=== PATIENT | male | born 1960 | race Caucasian/White ===

== ENCOUNTER 2018-02-22 09:36 | Observation (INO) | payer OTHER ==
[~2018-02-22] VITALS: Ht 177.8 cm; Wt 93.5 kg
[~2018-02-22 09:36] MED LIST: LIPITOR 80MG80 MG PO; NITROSTAT0.4 M1 SL; PLAVIX 75MG TAB75 MG PO; TOPROL XL 25MG25 MG PO
[2018-02-22] MEDS ORDERED: NATURAL FLAX1000 MG PO (09:56)
[2018-02-22] MEDS ORDERED: ASPIR LOW81 MG PO (09:57)
[2018-02-22] MEDS ORDERED: COZAAR25 M1 PO (09:58)
[2018-02-22] MEDS ORDERED: ZYRTEC ALLERGY10 MG PO (09:59)
[2018-02-22 10:09] LABS: EOS # 0.1 (0.04-0.40); EOS % 1.3 % (0.0-4.0); HEMATOCRIT 42.8 % (42.0-52.0); LYMPH# 2.6 (1.50-4.00); MEAN CELL VOLUME 88 fl (78-100); MEAN CORPUSCULAR HEMOGLOBIN 31 pg (27-31); MEAN CORPUSCULAR HGB CONC 35 g/dL (33-37); MEAN PLATELET VOLUME 10.2 fl (7.4-10.4); MONO # 0.7 (0.20-0.80); NEU # 4.4 (1.40-6.50); PLATELET COUNT 182 K/mm3 (130-400); RED BLOOD COUNT 4.89 M/mm3 (4.20-5.60); RED CELL DISTRIBUTION WIDTH 13.3 % (11.5-14.5); WHITE BLOOD COUNT 7.9 K/mm3 (4.8-10.8)
[2018-02-22 10:20] LABS: ALBUMIN 4.1 g/dL (3.5-5.0); CALCIUM 8.5 mg/dL (8.4-10.2); POTASSIUM 3.8 mmol/L (3.6-5.0); TOTAL BILIRUBIN 0.7 mg/dL (0.2-1.3); TOTAL PROTEIN 7.2 g/dL (6.3-8.2)
[2018-02-22 14:43] VITALS: BP 131/76
[2018-02-22 15:25] VITALS: BP 116/69
[2018-02-22 18:38] VITALS: BP 108/68
[2018-02-22 22:46] VITALS: BP 129/75
[2018-02-23 02:44] VITALS: BP 118/76
[2018-02-23 06:31] VITALS: BP 118/72
[2018-02-23 11:16] VITALS: BP 115/64
[2018-02-23 13:53] VITALS: BP 106/65
== END 2018-02-23 15:25 | disposition home or self-care (01) ==
LOC: ED 09:36 → MED/SURG 13:53
PROVIDERS: ADMIT Family Medicine
DX: I21.4 Non-ST elevation (NSTEMI) myocardial infarction (principal); I25.2 Old myocardial infarction; R00.1 Bradycardia, unspecified; Z95.5 Presence of coronary angioplasty implant and graft; I25.10 Atherosclerotic heart disease of native coronary artery without angina pectoris; E78.5 Hyperlipidemia, unspecified; Z79.82 Long term (current) use of aspirin; Z79.899 Other long term (current) drug therapy; T48.6X6A Underdosing of antiasthmatics, initial encounter; Z91.138 Patient's unintentional underdosing of medication regimen for other reason
CPT/HCPCS: G0378; J1644

== ENCOUNTER 2018-04-06 10:45 | Outpatient (RCR) | payer BC ==
[~2018-04-06 10:45] MED LIST changes: +ASPIR LOW81 MG PO; +COZAAR25 M1 PO; +NATURAL FLAX1000 MG PO; +ZYRTEC ALLERGY10 MG PO
== END 2018-06-29 11:01 | disposition home or self-care (01) ==
LOC: CARDREHAB 10:45 → CARDLAB 13:36 → CARDREHAB 06-29 11:01
DX: Z48.812 Encounter for surgical aftercare following surgery on the circulatory system (principal); Z95.5 Presence of coronary angioplasty implant and graft